=== PATIENT | male | born 1970 | race Caucasian/White ===

== ENCOUNTER → 2021-07-07 | Day surgery (SDC) | payer OTHER ==
[~2021-07-07] VITALS: Ht 175.3 cm; Wt 83.9 kg
[~2021-07-07] MED LIST: ALLOPURINOL300 MG PO; COZAAR100 MG PO; LIPITOR 10MG TA10 MG PO
== END | disposition home or self-care (01) ==
LOC: FAS 08:26
DX: Z12.11 Encounter for screening for malignant neoplasm of colon (principal); I10 Essential (primary) hypertension; E78.00 Pure hypercholesterolemia, unspecified; E78.5 Hyperlipidemia, unspecified; Z79.899 Other long term (current) drug therapy; Z72.89 Other problems related to lifestyle
CPT/HCPCS: J2250; J2704; J7120